=== PATIENT | male | born 1955 | race Caucasian/White ===

== ENCOUNTER 2020-05-11 17:47 | Emergency (ER) | payer OTHER ==
[2020-05-11] MEDS ORDERED: LORazepam 0.5 MG Tab PO ONE (19:18)
--- NOTE | 2020-05-11 19:24 | EDM.PDOC ---
ED HPI GENERAL MEDICAL PROBLEM - General Chief Complaint: General Stated Complaint: HIGH BLOOD PRESSURE Time Seen by Provider: 05/11/20 18:49 Source of Information: Reports: Patient, Significant Other History Limitations: Reports: No Limitations - History of Present Illness INITIAL COMMENTS - FREE TEXT/NARRATIVE: Patient presents with high blood pressure and right eye redness and discomfort. He noticed the eye symptoms at 1000 this morning. He isn't aware of getting anything in his eye but was driving with windows open and could have had something blow into his eye he says. He checked his BP at home a couple times this evening and it was 210/108. 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 He denies any headache, vision change, chest pain or dyspnea. Right Eye Pain Score (Numeric/FACES): 8 - Related Data Allergies Allergy/AdvReac Type Severity Reaction Status Date / Time No Known Allergies Allergy Verified 05/11/20 18:13 Home Meds: Home Meds Multivitamin with Minerals [Multiple Vitamin] 1 tab PO DAILY 04/08/14 [History] Aspirin [Halfprin] 81 mg PO BRK 10/05/16 [History] Levothyroxine Sodium [Levoxyl] 175 mcg PO ACBREAKFAST 10/05/16 [History] Losartan [Cozaar] 100 mg PO DAILY 10/05/16 [History] Past Medical History HEENT History: Reports: Impaired Vision Cardiovascular History: Reports: Hypertension Endocrine/Metabolic History: Reports: Hypothyroidism Immunologic History: Reports: None - Past Surgical History HEENT Surgical History: Reports: Oral Surgery GI Surgical History: Reports: Colonoscopy, Hernia, Abdominal Social & Family History - Family History Cardiac: Reports: NM Neurological: Reports: Alzheimers Disease Oncologic: Reports: Bone, Colon - Tobacco Use Smoking Status *Q: Never Smoker Second Hand Smoke Exposure: No - Caffeine Use Caffeine Use: Reports: Coffee, Soda Caffeine Use Comment: 6 cups a day - Recreational Drug Use Recreational Drug Use: No ED ROS GENERAL - Review of Systems Review Of Systems: See Below Constitutional: Denies: Fever, Chills, Malaise, Weakness HEENT: Denies: Ear Pain, Eye Discharge, Throat Pain, Vision Change Respiratory: Denies: Shortness of Breath, Cough Cardiovascular: Denies: Chest Pain, Lightheadedness, Syncope Endocrine: Denies: Fatigue GI/Abdominal: Denies: Abdominal Pain, Vomiting Musculoskeletal: Denies: Neck Pain, Shoulder Pain, Arm Pain Skin: Denies: Cyanosis, Jaundice, Mottled, Pallor, Diaphoresis Neurological: Denies: Confusion, Dizziness, Headache, Seizure, Syncope, Trouble Speaking, Difficulty Walking Psychiatric: Reports: Anxiety (his blood pressure goes up when he sees his provider in clinic). Denies: Agitation ED EXAM, GENERAL - Physical Exam Exam: See Below Exam Limited By: No Limitations General Appearance: Alert, WD/WN, No Apparent Distress Eye Exam: Right Eye: Conjunctival Injection, Left Eye: Normal Inspection, Bilateral Eye: EOMI, Normal Fundi, PERRL (full visual mack bilat) Ears: Normal External Exam, Hearing Grossly Normal Nose: Normal Inspection, No Blood Throat/Mouth: Normal Inspection, Normal Lips, Normal Voice, No Airway Compromise Head: Atraumatic, Normocephalic Neck: Normal Inspection, Supple, Full Range of Motion Respiratory/Chest: No Respiratory Distress, Lungs Clear, Normal Breath Sounds, No Accessory Muscle Use Cardiovascular: Regular Rate, Rhythm, No Murmur Back Exam: Normal Inspection, Full Range of Motion. No: CVA Tenderness (L), CVA Tenderness (R) Extremities: Normal Inspection, Normal Range of Motion Neurological: Alert, Oriented, Normal Cognition, No Motor/Sensory Deficits Psychiatric: Normal Affect, Normal Mood, Anxious (mild) Skin Exam: Warm, Dry, Intact, Normal Color, No Rash Course - Vital Signs Last Recorded V/S: Last Vital Signs Temp 96.5 F L 05/11/20 18:00 Pulse 57 L 05/11/20 18:00 Resp 18 05/11/20 18:00 BP 187/92 H 05/11/20 18:00 Pulse Ox 98 05/11/20 18:00 - Orders/Labs/Meds Meds: Medications Discontinued Medications Generic Name Dose Route Start Last Admin Trade Name Edgarq PRN Reason Stop Dose Admin Lorazepam 0.5 mg 05/11/20 19:18 Ativan PO 05/11/20 19:19 ONETIME ONE - Re-Assessments/Exams Free Text/Narrative Re-Assessment/Exam: 05/11/20 20:28 His eye feels much better with the eyedrops. Benedicto lens flush with 150 ml saline. Blood pressure is a little better after Lorazepam and okay to discharge and recheck tomorrow with his PCP as scheduled. He will call his evening anchor in the morning to get a check before the weekend if possible. His eye got irritated feeling again after eyedrops wore off. He can use ibuprofen 400-600 mg tid prn. Discussed findings and treatment plan with patient. Discharged to home in stable condition. Departure - Departure Time of Disposition: 20:21 Disposition: Home, Self-Care 01 Condition: Good Clinical Impression: Hypertension Qualifiers: Hypertension type: unspecified Qualified Code(s): I10 - Essential (primary) hypertension Conjunctivitis Qualifiers: Conjunctivitis type: acute Acute conjunctivitis type: viral Laterality: right Qualified Code(s): B30.9 - Viral conjunctivitis, unspecified - Discharge Information Referrals: Paula Molina PA-C [Primary Care Provider] - Additional Instructions: Take your blood pressure medications as directed and follow up with your PCP tomorrow as scheduled to reassess your blood pressure control and to recheck your eye. Let her know if you have matter or discharge from the eye tomorrow morning. Sepsis Event Note (ED) - Evaluation Sepsis Screening Result: No Definite Risk - Focused Exam Vital Signs: Vital Signs Temp Pulse Resp BP Pulse Ox 05/11/20 18:00 96.5 F L 57 L 18 187/92 H 98
[2020-05-11] MEDS ORDERED: Tetracaine HCl/PF 0.5% 4 ML Bottle EYERT ONE (19:45)
[2020-05-11 20:09] VITALS: BP 177/90; PULSE 51
== END 2020-05-11 20:45 | disposition home or self-care (01) ==
LOC: KA.ED 17:47
DX: B30.9 Viral conjunctivitis, unspecified (principal); H10.31 Unspecified acute conjunctivitis, right eye; I10 Essential (primary) hypertension; E03.9 Hypothyroidism, unspecified; Z79.82 Long term (current) use of aspirin; Z79.899 Other long term (current) drug therapy
CPT/HCPCS: 99283; A9270-GY; J7050

== ENCOUNTER 2022-08-06 09:34 | Day surgery (SDC) | payer MEDICARE, OTHER ==
[~2022-08-06 09:34] MED LIST: Lactated Ringers 1,000 ML IV SCH; Sodium Chloride 0.9% 10 ML Syringe FLUSH PRN
[2022-08-06] MEDS ORDERED: Propofol 200 MG/20 ML SDV ONE (10:35)
[2022-08-06] MEDS ORDERED: Midazolam 1 MG/ML 2 ML SDV ONE (10:35)
[2022-08-06 16:29] VITALS: BP 107/62; PULSE 55
== END 2022-08-06 12:35 | disposition home or self-care (01) ==
LOC: KA.SDS 09:34
PROVIDERS: ATTEND Surgery
DX: Z12.11 Encounter for screening for malignant neoplasm of colon (principal); K57.30 Diverticulosis of large intestine without perforation or abscess without bleeding; E78.5 Hyperlipidemia, unspecified; I10 Essential (primary) hypertension; E03.9 Hypothyroidism, unspecified; Z79.899 Other long term (current) drug therapy; Z79.82 Long term (current) use of aspirin; Z79.890 Hormone replacement therapy; Z80.0 Family history of malignant neoplasm of digestive organs; Z98.890 Other specified postprocedural states
CPT/HCPCS: J2250; J2704; J7120